=== PATIENT | male | born 1945 | race Caucasian/White ===

== ENCOUNTER 2024-06-19 10:21 | Emergency (ER) | payer MEDICARE ==
[~2024-06-19] VITALS: Ht 193 cm; Wt 84.3 kg
[2024-06-19 14:44] VITALS: BP 164/88; TEMP 97.3; O2SAT 98
== END 2024-06-19 15:18 | disposition home or self-care (01) ==
LOC: M ED 10:21
DX: K40.91 Unilateral inguinal hernia, without obstruction or gangrene, recurrent (principal); I86.1 Scrotal varices; E11.9 Type 2 diabetes mellitus without complications; I10 Essential (primary) hypertension; E78.5 Hyperlipidemia, unspecified; F17.210 Nicotine dependence, cigarettes, uncomplicated; F10.10 Alcohol abuse, uncomplicated

== ENCOUNTER 2024-08-02 12:22 | Emergency (ER) | payer MEDICARE ==
[~2024-08-02] VITALS: Ht 188 cm; Wt 86.4 kg
[2024-08-02] MEDS ORDERED: CARV6.25 (12:35)
[2024-08-02] MEDS ORDERED: OMEP-173 (12:35)
[2024-08-02] MEDS ORDERED: EZET10TA21 PO (12:35)
[2024-08-02] MEDS ORDERED: METF500T13 (12:35)
[2024-08-02] MEDS ORDERED: ROSU40TA81 (12:35)
[2024-08-02] MEDS ORDERED: TAMS1CAP17 (12:35)
[2024-08-02] MEDS ORDERED: ECOT81TA5 PO (12:35)
[2024-08-02 14:42] VITALS: BP 128/77; TEMP 97.2; O2SAT 99
[2024-08-02] MEDS ORDERED: AMOX500C PO (16:31)
[2024-08-02] MEDS ORDERED: METH-1165 PO (16:31)
== END 2024-08-02 16:36 | disposition home or self-care (01) ==
LOC: M ED 12:22
DX: S06.0X0A Concussion without loss of consciousness, initial encounter (principal); S13.4XXA Sprain of ligaments of cervical spine, initial encounter; S02.5XXA Fracture of tooth (traumatic), initial encounter for closed fracture; W11.XXXA Fall on and from ladder, initial encounter; Y92.009 Unspecified place in unspecified non-institutional (private) residence as the place of occurrence of the external cause; Y93.9 Activity, unspecified; Y99.9 Unspecified external cause status; E11.9 Type 2 diabetes mellitus without complications; E78.5 Hyperlipidemia, unspecified; I10 Essential (primary) hypertension; K21.9 Gastro-esophageal reflux disease without esophagitis